=== PATIENT | female | born 1975 | race Caucasian/White ===

== ENCOUNTER 2021-05-29 01:49 | Observation (INO) ==
[2021-05-29] MEDS ORDERED: Ondansetron 4 MG/2 ML VIAL IVP PRN (04:43)
[2021-05-29] MEDS ORDERED: Acetaminophen 325 MG TABLET PO PRN (04:43)
[2021-05-29] MEDS ORDERED: Melatonin 3 MG TABLET PO PRN (04:43)
[2021-05-29] MEDS ORDERED: Naloxone 0.4 MG/ML INJ IVP PRN (04:43)
[2021-05-29] MEDS ORDERED: Saliva Stimulant 44.3ml BOTTLE PO PRN (04:47)
[2021-05-29] MEDS ORDERED: Dextrose 4 GM Chewable Tablets PO PRN ×2 (04:47)
[2021-05-29] MEDS ORDERED: D5% in Water 1,000 ML IVC PRN (04:47)
[2021-05-29] MEDS ORDERED: *HR* Dextrose 50 % in Water (Syg) 50 ML SYRINGE IVP PRN (04:47)
[2021-05-29] MEDS ORDERED: Perflutren Lipid Microsphere 1.3 ML in 0.9 % Sodium Chloride 8.7 ML IVP PRN (04:51)
[2021-05-29] MEDS: 0.9 % Sodium Chloride 1,000 ML IVC SCH ×2 (05:09→21:27)
[2021-05-29 05:36] LABS: Hematocrit 36.3 % (35.3-44.9); Mean Corpuscular HGB Conc 34.2 g/dL (31.6-35.5); Mean Corpuscular Hemoglobin 29.7 pg (28.0-33.3); Mean Corpuscular Volume 86.8 fL (83.0-100.0); Mean Platelet Volume 12.6 fL (9.4-12.4); Platelet Count 205 K/mcL (140-400); Red Blood Count 4.18 M/mcL (3.82-4.97); Red Cell Distribution Width 12.8 % (11.5-14.5); White Blood Count 14.6 K/mcL (4.3-11.1)
[2021-05-29 05:40] LABS: Hemoglobin 12.4 g/dL (11.5-15.4); INR 1.2; Prothrombin Time 13.2 Seconds (9.4-12.1)
[2021-05-29 05:43] LABS: Activated Partial Thrombo Time 30.9 Seconds (26.0-36.0)
[2021-05-29] MEDS: *HR* Enoxaparin 40 MG/0.4 ML SYRINGE SQ SCH (05:53)
[2021-05-29 05:56] LABS: Chol/HDL Ratio 3.1 (0-4.9); Magnesium 1.9 mg/dL (1.6-2.6); Phosphorous 2.5 mg/dL (2.7-4.5)
[2021-05-29 06:58] LABS: BUN/Creatinine Ratio 10 (6-26); Blood Urea Nitrogen 6 mg/dL (6-20); Calcium 9.1 mg/dL (8.6-10.3); Carbon Dioxide 19 mEq/L (23-29); Chloride 108 mEq/L (98-107); Glucose 103 mg/dL (70-105); Osmolality,Calculated 288 (280-300); Potassium 3.5 mEq/L (3.5-5.1); Sodium 140 mEq/L (136-145); Thyroid Stimulating Hormone 1.131 mcIU/mL (0.340-5.600); eGFR For African Americans > 60 (> 60); eGFR For Non-African Americans > 60 (> 60)
[2021-05-29] MEDS ORDERED: carvediloL 6.25 MG TABLET PO SCH (08:00)
[2021-05-29] MEDS ORDERED: Pantoprazole 40 MG VIAL IVP SCH (09:00)
[2021-05-29] MEDS: Chlorhexidine Rinse 15 ML MOUTHWASH MM SCH ×2 (09:14→21:26)
[2021-05-29 10:21] LABS: Estimated Average Glucose 103 mg/dl; Hemoglobin A1C 5.2 %
[2021-05-29] MEDS ORDERED: GI Cocktail 40 ML EACH PO ONE (16:12)
[2021-05-29] MEDS: Pantoprazole 40 MG VIAL IVP SCH (21:26)
[2021-05-30] MEDS: *HR* Enoxaparin 40 MG/0.4 ML SYRINGE SQ SCH (06:34)
[2021-05-30] MEDS: Chlorhexidine Rinse 15 ML MOUTHWASH MM SCH (09:17)
[2021-05-30] MEDS: Pantoprazole 40 MG VIAL IVP SCH (09:17)
[2021-05-30] MEDS ORDERED: *HR* Propofol 200 MG/20 ML VIAL IVP ONE (15:16)
[2021-05-30] MEDS ORDERED: Lidocaine -MPF 2% 5 ML VIAL ONE (15:16)
[2021-05-30 16:56] VITALS: BP 109/74; PULSE 77; TEMP 98.1; O2SAT 97
[2021-05-30] MEDS ORDERED: GI Cocktail 40 ML EACH PO ONE (17:52)
== END 2021-05-30 18:18 | disposition home or self-care (01) ==
LOC: 2ANU → SUATTDRO 03:42
PROVIDERS: ADMIT Internal Medicine; ATTEND Hospitalist
PROC: ENDOEBX (2021-05-30 15:00)